=== PATIENT | female | born 1970 | race Caucasian/White ===

== ENCOUNTER 2019-05-05 16:16 | Inpatient (IN) ==
[2019-05-05] MEDS ORDERED: SODIUM CHLORIDE 0.9% 1000ML 1,000 ML IV SCH (16:45)
[2019-05-05 17:11] LABS: Basophils # (auto) 0.02 K/uL (0-0.2); Basophils % (auto) 0.2 %; Hematocrit (blood only) 37.4 % (37-47); Hemoglobin 13.1 g/dL (12.0-16.0); Immature Granulocytes # (auto) 0.01 K/uL (0.00-0.02); Immature Granulocytes % (auto) 0.1 %; Lymphocytes # (auto) 3.31 K/uL (1.2-3.4); Mean Corpuscular Volume 90.8 fL (80-100); Mean Platelet Volume 9.8 fL (7.4-10.4); Monocytes # (auto) 0.89 K/uL (0.11-0.59); Monocytes % (auto) 9.1 %; Neutrophils % (auto) 55.6 %; Platelet Count 244 K/uL (130-400); RDW Coefficient of Variation 12.5 % (11.5-14.5); RDW Standard Deviation 41.2 fL (36.4-46.3); Red Blood Count 4.12 M/uL (4.2-5.4); White Blood Count 9.73 K/uL (4.8-10.8)
[2019-05-05 17:35] LABS: Albumin Level 3.5 gm/dl (3.4-5.0); BUN Creatinine Ratio 10.3 (10-20); Calcium 8.7 mg/dl (8.5-10.1); Creatinine Clr Calc Pharmacy 85.3 ml/min; Est GFR (African American) 93.9; Magnesium 2.1 mg/dl (1.8-2.4); Potassium 3.3 mmol/L (3.5-5.1)
[2019-05-05 17:37] LABS: Acetaminophen 6 ug/ml (10-30); Salicylate < 1.7 mg/dl (2.8-20)
[2019-05-05 17:43] LABS: Bilirubin,Total 0.6 mg/dl (0.2-1); Globulin 3.4 gm/dl (2.5-4.0); Total Protein 6.9 gm/dl (6.4-8.2)
[2019-05-05 18:20] LABS: Appearance Urine Clear (Clear); Bilirubin Urine Negative (Negative); Blood Urine Negative (Negative); Color Urine Yellow; Glucose Urine UA Negative (Negative); Ketones Urine Negative (Negative); Leukocyte Esterase Urine Negative (Negative); Nitrite Urine Negative (Negative); Protein Urine Negative (Negative); Urobilinogen Urine Negative (Negative); pH Urine 6.5 (4.5-7.5)
[2019-05-05 18:21] LABS: Pregnancy Test, Urine Negative (Negative)
[2019-05-05 18:39] LABS: Amphetamines+Metham, Urine Neg (Neg); Barbiturates, Urine Neg (Neg); Benzodiazepine, Urine Pos (Neg); Cocaine, Urine Neg (Neg); MDMA (Ecstacy), Urine Neg (Neg); Methadone, Urine Neg (Neg); Opiate, Urine Pos (Neg); Phencyclidine, Urine Neg (Neg)
--- NOTE | 2019-05-05 20:08 | Emergency Department Note ---
Entered by Anabel Francis acting as a scribe for History of Present Illness General Chief complaint: Mental Health Evaluation Stated complaint: OVERDOSE Time Seen by Provider: 05/05/19 16:36 History of Present Illness Onset (ago): day(s) (1100) Location: head (psych, global), upper extremity (global) and lower extremity (global) Pain Consistency: + other (episode) Maximum Pain Intensity: 0 Quality: + other (overdose) Associated symptoms: + other ( The patient complains of seeing light renae floaters. The patient denies auditory or visual hallucinations. ) Treatments prior to arrival: other (. She reports taking 4 Ambien, twenty 1 mg Clonazepam, and twenty 1 mg of lorazepam between 1100 and 1300) The patient is a 49 white female w/ PMHx depression, anxiety, PTSD, and a bladder infection who presents to the ED w/ CC of an episode of an overdose beginning at 1100. The patient states that she slept for 6 hours last night and woke up at 0300. She notes that she wanted to sleep so she took her medications and the more she took, the more she wanted to take. She reports taking 4 Ambien, twenty 1 mg Clonazepam, and twenty 1 mg of lorazepam between 1100 and 1300. She states that she wouldnt care if she didn't wake up. Per family, the patients texts prior to arrival were difficult to understand and she was slurring her words verbally. The patient complains of seeing light renae floaters. The patient denies auditory or visual hallucinations. Home Medications Home Medications Medication Instructions Recorded Confirmed Type Thrive 2 cap PO QAM 05/05/19 05/05/19 History clonazepam 1 mg PO TID PRN 05/05/19 05/05/19 History lorazepam [Ativan] 1 mg PO TID PRN 05/05/19 05/05/19 History lurasidone [Latuda] 80 mg PO PM 05/05/19 05/05/19 History norgestrel-ethinyl estradiol 1 tab PO QAM 05/05/19 05/05/19 History [Low-Ogestrel (28)] omeprazole 40 mg PO QAM 05/05/19 05/05/19 History prazosin 1 mg PO HS 05/05/19 05/05/19 History trazodone 150 mg PO HS 05/05/19 05/05/19 History vortioxetine [Trintellix] 10 mg PO QAM 05/05/19 05/05/19 History zolpidem 10 mg PO HS PRN 05/05/19 05/05/19 History Allergies Allergy/AdvReac Type Severity Reaction Status Date / Time duloxetine Allergy Unknown swelling Verified 05/05/19 19:39 of tongue quetiapine [From Seroquel] AdvReac Severe swelling Verified 05/05/19 19:39 of tongue Past Med/Surg History Medical History PTSD (post-traumatic stress disorder) Overdose Anxiety (Acute) Contusion, foot (Acute) Alcohol abuse Surgical History No pertinent past surgical history Family History Other No pertinent family history Social History Preferred Language: Urdu Communication Ability: Effective Visual Impairment: No Limitations Hearing Ability: Normal 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 and A total of 10 systems reviewed and were otherwise negative Physical Exam Vital Signs Vital Signs - 24 hr 05/05/19 16:23 05/05/19 16:44 05/05/19 17:47 Temperature 36.8 C Temperature Source Oral Sepsis Recent Fever Within 48 Hours No Sepsis New/Unexplained Change in Mental Status No Sepsis Action Taken by Nursing No Action Required Pulse Rate 80 Pulse Rate [Finger] 62 Respiratory Rate 16 Respiratory Effort / Characteristics Non-Labored Respiratory Depth Normal Respiratory Pattern Regular Blood Pressure 120/84 Blood Pressure [Left Arm] 128/85 Blood Pressure Mean 96 Blood Pressure Mean [Left Arm] 99 Blood Pressure Position Sitting Pulse Oximetry 96 99 Oxygen Delivery Method Room Air Room Air 05/05/19 18:13 05/05/19 21:08 Temperature Temperature Source Sepsis Recent Fever Within 48 Hours Sepsis New/Unexplained Change in Mental Status Sepsis Action Taken by Nursing Pulse Rate Pulse Rate [Finger] 65 77 Respiratory Rate 15 17 Respiratory Effort / Characteristics Respiratory Depth Respiratory Pattern Blood Pressure Blood Pressure [Left Arm] 123/83 107/65 Blood Pressure Mean Blood Pressure Mean [Left Arm] 96 79 Blood Pressure Position Pulse Oximetry 99 93 Oxygen Delivery Method Room Air Room Air GENERAL: Well nourished, NAD, non-toxic. Somewhat groggy, but easily arousable, eyes open to voice. EYE EXAM: Normal conjunctiva. PERRL, no anisocoria and EOM's grossly intact w/o pain. OROPHARYNX: Moist mucus membranes. Grossly normal dentition. NECK: Supple, no nuchal rigidity, no adenopathy, non-tender. no signs of meningismus. LUNGS: Clear to auscultation. Normal chest wall mechanics. No bradypnea noted. HEART: NSR, no MRG. ABDOMEN: Abdomen soft, non-tender, normo-active bowel sounds, no masses, no rebound or guarding. BACK: No CVA TTP. SKIN: No rashes and no bruising. UPPER EXTREMITIES: Upper extremities are grossly normal. LOWER EXTREMITIES: No pitting edema. No calf pain. NEURO EXAM: A&O x3, cranial nerves II-XII grossly intact, normal speech, moves all 4 extremities on command w/o issue. Easily arousable, eyes open to voice. Course 1641: Past medical records reviewed. The patient was evaluated in room B02. A complete history and physical examination was performed. 1839: The patient was moved to A7. 2030: The patient was signed out to Dr. Quintanilla at the change of shifts. Administered Medications Miscellaneous (Order Awaiting Action) 1 ea N/A QS [facility] Stop: 06/05/19 15:59 Last Admin: 05/06/19 15:27 Dose: Not Given Documented by: [id number] Pantoprazole Sodium (Protonix) 40 mg PO QAM [facility] Stop: 06/05/19 08:59 Last Admin: 05/06/19 07:43 Dose: 40 mg Documented by: [id number] Discontinued Medications Sodium Chloride (Nss 1000ml) 1,000 mls @ 999 mls/hr IV .[id number] [id number] Stop: 05/05/19 17:45 Last Infusion: 05/05/19 18:38 Dose: 0 mls/hr Documented by: [id number] Admin: 05/05/19 17:25 Dose: 999 mls/hr Documented by: [id number] Medical Decision Making Differential Diagnosis Differential diagnoses Mood disorder, infection, hypoglycemia, electrolyte abnormalities, cardiac s ources, intracerebral event, toxicologic, neurologic, as well as others etiologies were considered. Medical Records Attestation: I reviewed the patient's medical records. Home Medications Current Medication List: was personally reviewed by me Laboratory Data Attestation: I reviewed the patient's lab results. Result diagrams: 05/05/19 17:00 05/05/19 17:00 Lab Results 05/05/19 05/05/19 05/05/19 Range/Units 17:00 17:00 17:00 WBC 9.73 (4.8-10.8) K/uL RBC 4.12 L (4.2-5.4) M/uL Hgb 13.1 (12.0-16.0) g/dL Hct 37.4 (37-47) % MCV 90.8 (80-100) fL MCH 31.8 (25-34) pg MCHC 35.0 (32-36) g/dL RDW Std Deviation 41.2 (36.4-46.3) fL RDW Coeff of Rivas 12.5 (11.5-14.5) % Plt Count 244 (130-400) K/uL MPV 9.8 (7.4-10.4) fL Immature Gran % (Auto) 0.1 % Neut % (Auto) 55.6 % Lymph % (Auto) 34.0 % Rabun % (Auto) 9.1 % Eos % (Auto) 1.0 % Baso % (Auto) 0.2 % Immature Gran # (Auto) 0.01 (0.00-0.02) K/uL Neut # (Auto) 5.40 (1.4-6.5) K/uL Lymph # (Auto) 3.31 (1.2-3.4) K/uL Rabun # (Auto) 0.89 H (0.11-0.59) K/uL Eos # (Auto) 0.10 (0-0.5) K/uL Baso # (Auto) 0.02 (0-0.2) K/uL Sodium 139 (136-145) mmol/L Potassium 3.3 L (3.5-5.1) mmol/L Chloride 109 H (98-107) mmol/L Carbon Dioxide 23 (21-32) mmol/L Anion Gap 7.0 (3-11) BUN 9 (7-18) mg/dl Creatinine 0.84 (0.6-1.2) mg/dl Est Cr Clr Drug Dosing 85.3 ml/min Est GFR ( Amer) 93.9 Est GFR (Non-Af Amer) 81.0 BUN/Creatinine Ratio 10.3 (10-20) Glucose 89 (70-99) mg/dl Calcium 8.7 (8.5-10.1) mg/dl Magnesium 2.1 (1.8-2.4) mg/dl Total Bilirubin 0.6 (0.2-1) mg/dl AST 13 L (15-37) U/L ALT 26 (12-78) U/L Alkaline Phosphatase 67 (45-117) U/L Total Protein 6.9 (6.4-8.2) gm/dl Albumin 3.5 (3.4-5.0) gm/dl Globulin 3.4 (2.5-4.0) gm/dl Albumin/Globulin Ratio 1.0 (0.9-2) TSH (0.300-4.500) uIu/ml Urine Color Urine Appearance (Clear) Urine pH (4.5-7.5) Ur Specific Iraan (1.000-1.030) Urine Protein (Negative) Urine Glucose (UA) (Negative) Urine Ketones (Negative) Urine Blood (Negative) Urine Nitrite (Negative) Urine Bilirubin (Negative) Urine Urobilinogen (Negative) Ur Leukocyte Esterase (Negative) Urine Test (Negative) Salicylates < 1.7 L (2.8-20) mg/dl Urine Opiates Screen (Neg) Ur Methadone, Qual (Neg) Acetaminophen 6 L (10-30) ug/ml Urine Barbiturates (Neg) Ur Phencyclidine (PCP) (Neg) U Amphetamin/Meth Scrn (Neg) MDMA (Ecstasy) Screen (Neg) U Benzodiazepines Scrn (Neg) Ur Cocaine Metabolite (Neg) U Marijuana (THC) Screen (Neg) Ethyl Alcohol mg/dL (0-3) mg/dl 05/05/19 05/05/19 05/05/19 Range/Units 17:00 17:00 17:00 WBC (4.8-10.8) K/uL RBC (4.2-5.4) M/uL Hgb (12.0-16.0) g/dL Hct (37-47) % MCV (80-100) fL MCH (25-34) pg MCHC (32-36) g/dL RDW Std Deviation (36.4-46.3) fL RDW Coeff of Rivas (11.5-14.5) % Plt Count (130-400) K/uL MPV (7.4-10.4) fL Immature Gran % (Auto) % Neut % (Auto) % Lymph % (Auto) % Rabun % (Auto) % Eos % (Auto) % Baso % (Auto) % Immature Gran # (Auto) (0.00-0.02) K/uL Neut # (Auto) (1.4-6.5) K/uL Lymph # (Auto) (1.2-3.4) K/uL Rabun # (Auto) (0.11-0.59) K/uL Eos # (Auto) (0-0.5) K/uL Baso # (Auto) (0-0.2) K/uL Sodium (136-145) mmol/L Potassium (3.5-5.1) mmol/L Chloride (98-107) mmol/L Carbon Dioxide (21-32) mmol/L Anion Gap (3-11) BUN (7-18) mg/dl Creatinine (0.6-1.2) mg/dl Est Cr Clr Drug Dosing ml/min Est GFR ( Amer) Est GFR (Non-Af Amer) BUN/Creatinine Ratio (10-20) Glucose (70-99) mg/dl Calcium (8.5-10.1) mg/dl Magnesium (1.8-2.4) mg/dl Total Bilirubin (0.2-1) mg/dl AST (15-37) U/L ALT (12-78) U/L Alkaline Phosphatase (45-117) U/L Total Protein (6.4-8.2) gm/dl Albumin (3.4-5.0) gm/dl Globulin (2.5-4.0) gm/dl Albumin/Globulin Ratio (0.9-2) TSH (0.300-4.500) uIu/ml Urine Color Yellow Urine Appearance Clear (Clear) Urine pH 6.5 (4.5-7.5) Ur Specific Iraan 1.010 (1.000-1.030) Urine Protein Negative (Negative) Urine Glucose (UA) Negative (Negative) Urine Ketones Negative (Negative) Urine Blood Negative (Negative) Urine Nitrite Negative (Negative) Urine Bilirubin Negative (Negative) Urine Urobilinogen Negative (Negative) Ur Leukocyte Esterase Negative (Negative) Urine Test Negative (Negative) Salicylates (2.8-20) mg/dl Urine Opiates Screen Pos H (Neg) Ur Methadone, Qual Neg (Neg) Acetaminophen (10-30) ug/ml Urine Barbiturates Neg (Neg) Ur Phencyclidine (PCP) Neg (Neg) U Amphetamin/Meth Scrn Neg (Neg) MDMA (Ecstasy) Screen Neg (Neg) U Benzodiazepines Scrn Pos H (Neg) Ur Cocaine Metabolite Neg (Neg) U Marijuana (THC) Screen Neg (Neg) Ethyl Alcohol mg/dL (0-3) mg/dl 05/05/19 05/05/19 Range/Units 17:00 17:18 WBC (4.8-10.8) K/uL RBC (4.2-5.4) M/uL Hgb (12.0-16.0) g/dL Hct (37-47) % MCV (80-100) fL MCH (25-34) pg MCHC (32-36) g/dL RDW Std Deviation (36.4-46.3) fL RDW Coeff of Rivas (11.5-14.5) % Plt Count (130-400) K/uL MPV (7.4-10.4) fL Immature Gran % (Auto) % Neut % (Auto) % Lymph % (Auto) % Rabun % (Auto) % Eos % (Auto) % Baso % (Auto) % Immature Gran # (Auto) (0.00-0.02) K/uL Neut # (Auto) (1.4-6.5) K/uL Lymph # (Auto) (1.2-3.4) K/uL Rabun # (Auto) (0.11-0.59) K/uL Eos # (Auto) (0-0.5) K/uL Baso # (Auto) (0-0.2) K/uL Sodium (136-145) mmol/L Potassium (3.5-5.1) mmol/L Chloride (98-107) mmol/L Carbon Dioxide (21-32) mmol/L Anion Gap (3-11) BUN (7-18) mg/dl Creatinine (0.6-1.2) mg/dl Est Cr Clr Drug Dosing ml/min Est GFR ( Amer) Est GFR (Non-Af Amer) BUN/Creatinine Ratio (10-20) Glucose (70-99) mg/dl Calcium (8.5-10.1) mg/dl Magnesium (1.8-2.4) mg/dl Total Bilirubin (0.2-1) mg/dl AST (15-37) U/L ALT (12-78) U/L Alkaline Phosphatase (45-117) U/L Total Protein (6.4-8.2) gm/dl Albumin (3.4-5.0) gm/dl Globulin (2.5-4.0) gm/dl Albumin/Globulin Ratio (0.9-2) TSH 0.819 (0.300-4.500) uIu/ml Urine Color Urine Appearance (Clear) Urine pH (4.5-7.5) Ur Specific Iraan (1.000-1.030) Urine Protein (Negative) Urine Glucose (UA) (Negative) Urine Ketones (Negative) Urine Blood (Negative) Urine Nitrite (Negative) Urine Bilirubin (Negative) Urine Urobilinogen (Negative) Ur Leukocyte Esterase (Negative) Urine Test (Negative) Salicylates (2.8-20) mg/dl Urine Opiates Screen (Neg) Ur Methadone, Qual (Neg) Acetaminophen (10-30) ug/ml Urine Barbiturates (Neg) Ur Phencyclidine (PCP) (Neg) U Amphetamin/Meth Scrn (Neg) MDMA (Ecstasy) Screen (Neg) U Benzodiazepines Scrn (Neg) Ur Cocaine Metabolite (Neg) U Marijuana (THC) Screen (Neg) Ethyl Alcohol mg/dL < 3.0 (0-3) mg/dl ECG Data Attestation: I personally reviewed and interpreted this ECG as follows: Indication: other (overdose) Rate (beats per minute): 66 Rhythm: normal sinus Findings: + other (normal intervals, normal axis, no STS changs); no T-wave inversion Blood Pressure Blood Pressure Findings: Normal blood pressure MDM Narrative The patient is a 49 white female w/ PMHx depression, anxiety, PTSD, and a bladder infection who presents to the ED w/ CC of an episode of an overdose beginning at 1100. Patient was seen and evaluated the bedside. The patient does have a prior history of a recent mental health admission secondary to overdose. The patient reportedly took 20 mg of Klonopin, 20 mg of Ativan, and 40 mg of Ambien around 11 AM. The patient states that she was taking it for sleep but then stated, "I did not care if I woke up." Patient denies HI or AVH. The patient did a blood work completed along with urinalysis and UDS. Patient was deemed medically clear. I did speak with poison control at the onset and recommended supportive care and stated that given that she was presenting initially approximately 6 to 7 hours after her initial ingestion this would be likely the peak symptoms. The patient is still easily arousable and able to follow commands. The patient is not I did speak with the psych upper caser the patient should stay inpatient given the concern for ingestion is equivocal for a suicidal attempt. Patient was pending placement disposition. I did sign out the patient to the evening ER physician Dr. Quintanilla. Impression & Plan Suicide attempt by benzodiazepine overdose Discharge Plan Visit Data *Final* Discharge Date/Time: 05/05/19 22:13 Chief Complaint: Mental Health Evaluation Stated Complaint: OVERDOSE ED Provider: Tyler Quintanilla Discharge Problem: Suicide attempt by benzodiazepine overdose Patient Disposition: Still a Patient Discharge Instructions Interventions: ED Discharge Assessment Last Done: 05/05/19 22:13 The scribe's documentation has been prepared under my direction and personally reviewed by me in its entirety. I confirm that the note above accurately reflects all work, treatment, procedures, and medical decision making performed by me.
--- NOTE | 2019-05-05 22:15 | Emergency Department Note ---
ED Visit Note Patient was accepted to [facility] [address]. .
[2019-05-05] MEDS ORDERED: MAGNESIUM HYDROXIDE SUSP 30 ML UDC PO PRN (22:42)
[2019-05-05] MEDS ORDERED: ACETAMINOPHEN 325 MG TAB PO PRN (22:42)
[2019-05-05] MEDS ORDERED: ALUMINUM/MAGNESIUM SUSP 30 ML UDC PO PRN (22:42)
[2019-05-05] MEDS ORDERED: SODIUM CHLORIDE 0.65% NA SOLN 45 ML (OCEAN) PRN (22:42)
[2019-05-05] MEDS ORDERED: BISMUTH SUBSALICYLATE PER ML OMNICELL CHARGE PO PRN (22:42)
[2019-05-05] MEDS ORDERED: LORazepam 1 MG TAB PO PRN (22:42)
[2019-05-06] MEDS: PANTOprazole 40 MG TAB PO SCH (07:43)
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
[2019-05-06] MEDS: TRINTELLIX: ORDER AWAITING ACTION SCH (15:27)
[2019-05-06] MEDS: LURASIDONE HCL 40 MG TAB PO SCH (17:19)
[2019-05-06] MEDS: PRAZOSIN HCL 1 MG CAP PO SCH (21:36)
[2019-05-06] MEDS: TRAZODONE HCL 100 MG TAB PO PRN (21:48)
[2019-05-07] MEDS: TRINTELLIX: ORDER AWAITING ACTION SCH ×3 (01:14→15:09)
[2019-05-07] MEDS: PANTOprazole 40 MG TAB PO SCH (08:26)
[2019-05-07 08:52] LABS: Glucose Fasting 93 mg/dl (70-99)
[2019-05-07 08:58] LABS: Chol HDL Ratio 4; Cholesterol 197 mg/dl (0-200); HDL Cholesterol 52 mg/dl; LDL Cholesterol Calculated 121 mg/dl; Triglycerides 121 mg/dl (0-150); VLDL Cholesterol 24 mg/dl
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
[2019-05-07] MEDS ORDERED: SERTRALINE HCL 50 MG TABLET PO ONE ×2 (17:00→17:45)
[2019-05-07] MEDS: LURASIDONE HCL 40 MG TAB PO SCH (17:16)
[2019-05-07] MEDS: PRAZOSIN HCL 1 MG CAP PO SCH (21:22)
[2019-05-08] MEDS: TRAZODONE HCL 100 MG TAB PO PRN (01:56)
[2019-05-08] MEDS: PANTOprazole 40 MG TAB PO SCH (08:37)
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
[2019-05-08 15:38] LABS: 7-Aminoclonaz, Confirm 447 NG/ML (CUTOFF=25); Hydro-Alp Ur, GC/MS NEGATIVE NG/ML (CUTOFF=25); Hydrocodone Urine NEGATIVE NG/ML (CUTOFF=50); Hydromor Urine NEGATIVE NG/ML (CUTOFF=50); Hydroxyethylflurazepam, Conf NEGATIVE NG/ML (CUTOFF=50); Hydroxytriazolam NEGATIVE NG/ML (CUTOFF=50); Lorazepam, Ur GC/MS >2000 NG/ML (CUTOFF=50); Morphine Urine NEGATIVE NG/ML (CUTOFF=50); Nordiazepam, Confirm NEGATIVE NG/ML (CUTOFF=50); Norhydrocodone Conf Ur NEGATIVE NG/ML (CUTOFF=50); Noroxycodone Urine NEGATIVE NG/ML (CUTOFF=50); Oxazepam Ur, GC/MS 61 NG/ML (CUTOFF=50); Oxycodone Urine NEGATIVE NG/ML (CUTOFF=50); Temazepam, Confirm NEGATIVE NG/ML (CUTOFF=50)
[2019-05-08] MEDS: LURASIDONE HCL 40 MG TAB PO SCH (17:11)
[2019-05-08] MEDS: SERTRALINE HCL 50 MG TABLET PO SCH (17:11)
[2019-05-08] MEDS: PRAZOSIN HCL 1 MG CAP PO SCH (21:05)
[2019-05-09] MEDS: PANTOprazole 40 MG TAB PO SCH (07:48)
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
[2019-05-09] MEDS: SERTRALINE HCL 50 MG TABLET PO SCH (17:22)
[2019-05-09] MEDS: LURASIDONE HCL 40 MG TAB PO SCH (17:22)
[2019-05-09] MEDS: PRAZOSIN HCL 1 MG CAP PO SCH (21:25)
[2019-05-09] MEDS: TRAZODONE HCL 50 MG TAB PO PRN (22:55)
[2019-05-10] MEDS: PANTOprazole 40 MG TAB PO SCH (08:03)
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
[2019-05-10] MEDS: LURASIDONE HCL 40 MG TAB PO SCH (17:53)
[2019-05-10] MEDS: SERTRALINE HCL 50 MG TABLET PO SCH (17:54)
[2019-05-10] MEDS: PRAZOSIN HCL 1 MG CAP PO SCH (21:42)
[2019-05-10] MEDS: GABAPENTIN 300 MG CAP PO SCH (21:42)
[2019-05-10] MEDS: TRAZODONE HCL 50 MG TAB PO PRN (22:19)
[2019-05-11] MEDS: PANTOprazole 40 MG TAB PO SCH (08:28)
[2019-05-11] MEDS: GABAPENTIN 300 MG CAP PO SCH ×2 (08:28→21:18)
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
[2019-05-11] MEDS ORDERED: Nursing to Pharmacy Communication ONE ×2 (10:08→10:10)
[2019-05-11] MEDS ORDERED: DESTROY THIS MEDICATION ONE ×2 (12:15)
[2019-05-11] MEDS: LURASIDONE HCL 40 MG TAB PO SCH (17:19)
[2019-05-11] MEDS: SERTRALINE HCL 50 MG TABLET PO SCH (17:19)
[2019-05-11] MEDS: PRAZOSIN HCL 1 MG CAP PO SCH (21:18)
[2019-05-11] MEDS ORDERED: TRAZODONE HCL 50 MG TAB PO SCH (22:00)
[2019-05-12] MEDS: GABAPENTIN 300 MG CAP PO SCH (08:03)
[2019-05-12] MEDS: PANTOprazole 40 MG TAB PO SCH (08:04)
--- NOTE | 2019-05-12 09:00 | Discharge Summary ---
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 be prescribed controlled substances given the high risk of abuse/misuse/negative outcomes. (6) Borderline personality disorder: 05/06 -borderline traits noted as above, continue to gather information. Post Discharge Appointments Primary Care Physician Name Of Family Doctor: [facility] - Becca Bartolome Primary Care Provider Appointment Comment: [address] [facility], [place] [address] Psychiatrist Name of Psychiatrist: [facility] - Holly Luu PA-C Psychiatrist's Date of Appointment with Psychiatrist: 05/13/19 Time of Appointment with Psychiatrist: 9:40am Psychiatric Appointment Comment: [address] [facility], [facility] [address], [address] [id number] Therapist Name of Therapist: [facility] Cinthia Montemayor Therapist's Date of Therapist Appointment: 05/22/19 Time of Therapist Appointment: 10:00 a.m. Therapy Appointment Comment: [address] [place] [address] Supervisor Education Name of Supervisor Education: [employer] Phone Number for Supervisor Education: [phone] Case Management Appointment Comment: [address] [facility], [address], [place], [place] Smoking Cessation Counseling Tobacco Cessation Medication Prescribed at Discharge: Not Applicable/Non-Smoker Contact Information Discharge Discharge Address: [address] [place] [address], [place] [address] Discharge Plan Discharge Items Reason For Visit: BIPOLAR DISORDER, DEPRESSED TYPE Discharge Diagnosis: Bipolar disorder type II Discharge Goals: Decrease discomfort, Improve disease control, Improve function, Learn about illness, Prevent disease and Therapeutic intervention Activity: Per 'Additional Instructions' section Non-emergency contact: Primary Care Provider, Psychiatrist, Therapist and [employer]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 Follow through with your scheduled aftercare appointments. If unable to keep an appointment, please call to reschedule. 2. Take your medication only as prescribed. Medication should not be changed or stopped without the approval of your doctor. In the event of worsening symptoms or concerns about side effects, contact your doctor immediately. 3. Utilize new healthy coping skills, anger management skills, and stress management skills learned during your hospitalization. Journal feelings and process them with a support person. Identify stressors or situations that may result in relapse, deterioration or inappropriate behaviors and develop a plan to deal with those issues. 4. If your coping skills are ineffective and you are in crisis, contact your outpatient providers for direction. If unable to reach your providers, please call the CAN HELP LINE AT or go to the closest Emergency Room. 5. Avoid alcohol and un-prescribed drugs. 6. You have been provided with the Mental Health Advance Directives Pamphlet for your review. AFTERCARE APPOINTMENTS: * Please call your insurance company prior to your scheduled appointment to confirm your aftercare providers are covered. Take your insurance information to your appointments. WHO TO CALL AND WHEN: Medical Emergencies: For questions or emergencies related to your hospital stay, please contact the Inpatient Behavioral Health Unit at [phone]. A emergency department clinician is on-call 18/06 for the Behavioral Health Unit for emergencies At any time you feel your situation is an emergency, you may also call 911 immediately. Your Doctors Instructions noted above were prepared by provider Tonia Burns MD. Prescriptions: New gabapentin 300 mg Capsule 300 mg PO BID Qty: 60 RF: 0 sertraline 50 mg Tablet 100 mg PO QDD Qty: 30 RF: 0 hydroxyzine HCl 25 mg tablet 25 mg PO UD PRN (Reason: sleep or anxiety) Qty: 60 RF: 0 Continued Low-Ogestrel (28) 0.3-30 mg-mcg tablet 1 tab PO QAM RF: 0 prazosin 1 mg capsule 1 mg PO HS RF: 0 omeprazole 40 mg capsule,delayed release(DR/EC) 40 mg PO QAM RF: 0 trazodone 150 mg tablet 150 mg PO HS RF: 0 Latuda 80 mg tablet 80 mg PO PM RF: 0 Thrive 2 cap PO QAM RF: 0 Discontinued clonazepam 1 mg tablet 1 mg PO TID PRN (Reason: Anxiety) RF: 0 lorazepam [Ativan] 1 mg tablet 1 mg PO TID PRN (Reason: Anxiety) RF: 0 zolpidem 10 mg tablet 10 mg PO HS PRN (Reason: Sleep) RF: 0 Trintellix 5 mg tablet 10 mg PO QAM RF: 0 Stand-Alone Forms: [facility] Admission Data Admit Date/Time: 05/05/19 22:06 Attending Provider: Tonia Burns Admit Provider: Ramón Sutton I Primary Care Provider: Miguelina Mancuso Service: Psychiatry Other Interventions: PSY Interdisciplinary Discharge Planning Last Done: 05/08/19 12:53 Pending Studies at Discharge: No
[2019-05-12] MEDS ORDERED: DESTROY THIS MEDICATION ONE (10:29)
== END 2019-05-12 13:30 | disposition home or self-care (01) | DRG 918 ==
LOC: ED 16:16 → 3S 22:06